=== PATIENT | male | born 1960 | race Caucasian/White ===

== ENCOUNTER 2020-06-18 10:36 | Emergency (ER) | payer BC, OTHER ==
[~2020-06-18] VITALS: Ht 180.3 cm; Wt 85.7 kg
[2020-06-18] MEDS ORDERED: morphine INJ 10 MG/ML 1ML (SYR OR VIAL) IVP STA (10:50)
[2020-06-18] MEDS ORDERED: KETOROLAC 30 MG/ML VIAL IVP ONE (11:00)
[2020-06-18] MEDS ORDERED: ONDANSETRON 4 MG/2 ML (SDV) Z0FRAN IVP ONE (11:00)
[2020-06-18] MEDS ORDERED: ENALAPRILAT 1.25 MG/1 ML (VASOTEC) 1 ML VIAL IV ONE (11:00)
[2020-06-18] MEDS ORDERED: lisINopril 10 MG (PRINIVIL) TABLET PO ONE (11:00)
--- NOTE | 2020-06-18 11:29 | Diagnostic Imaging Report ---
EXAMINATION: CT head without contrast. TECHNIQUE: Multiple contiguous axial images were obtained through the brain without the use of intravenous contrast. All CT scans use one or more of the following dose optimizing techniques: automated exposure control, MA and/or KvP adjustment based on a patient size and exam type, or iterative reconstruction. HISTORY: headache x 7days COMPARISON: None available. FINDINGS: The ventricles and sulci are normal. No abnormal attenuation of brain parenchyma is present. No acute intracranial hemorrhage or abnormal extra-axial fluid collections are present. Calcification of the intracranial ICAs. No hyperdense vessel. The calvarium is intact. Mucosal thickening of the ethmoid sinuses. The visualized paranasal sinuses are clear. The orbits are normal. IMPRESSION: 1. No acute intracranial abnormality. Dictated by: Dictated on workstation # [id number]
[2020-06-18 11:32] LABS: BASOPHILS % (AUTO) 1 % (0-10); EOSINOPHILS % (AUTO) 3 % (0-10); HEMATOCRIT 44 % (40-54); LYMPHOCYTES % (AUTO) 25 % (12-44); MEAN CORPUSCULAR HEMOGLOBIN 29 PG (25-34); MEAN CORPUSCULAR HGB CONC 34 G/DL (32-36); MEAN CORPUSCULAR VOLUME 85 FL (80-99); MEAN PLATELET VOLUME 9.3 FL (7.4-10.4); MONOCYTES % (AUTO) 6 % (0-12); NEUTROPHILS % (AUTO) 65 % (42-75); PLATELET COUNT 263 10^3/uL (130-400); WHITE BLOOD COUNT 6.1 10^3/uL (4.3-11.0)
[2020-06-18 11:33] LABS: BASOPHILS # (AUTO) 0.1 10^3/uL (0.0-0.1); EOSINOPHILS # (AUTO) 0.2 10^3/uL (0.0-0.3); LYMPHOCYTES # (AUTO) 1.5 X 10^3 (1.0-4.0); MONOCYTES # (AUTO) 0.4 X 10^3 (0.0-1.0)
[2020-06-18 11:40] LABS: ALANINE AMINOTRANSFERASE 25 U/L (0-55); ALKALINE PHOSPHATASE 83 U/L (40-136); BILIRUBIN,TOTAL 0.3 MG/DL (0.1-1.0); BUN/CREATININE RATIO 22; CALCIUM 9.9 MG/DL (8.5-10.1); CARBON DIOXIDE 24 MMOL/L (21-32); CHLORIDE 102 MMOL/L (98-107); CREATININE SERUM 0.72 MG/DL (0.60-1.30); GFR ESTIMATED > 60; GLUCOSE 175 MG/DL (70-105); SODIUM 139 MMOL/L (135-145); TOTAL PROTEIN 7.6 GM/DL (6.4-8.2)
[2020-06-18 11:41] LABS: ALBUMIN 4.5 GM/DL (3.2-4.5)
[2020-06-18] MEDS ORDERED: LISI40TA PO (12:01)
--- NOTE | 2020-06-18 12:01 | ED General ---
General Chief Complaint: Cardiac/General Problems Stated Complaint: HEADACHE, HIGH BP Nursing Triage Note: Patient presents to the ED with c/o of high blood pressure and headaches. He states that he was seen at [facility] this morning and sent to the ED for further evaluation because his blood pressure was elevated. He also reports that he has been experiencing headaches every morning for the past 7 days. Nursing Sepsis Screen: No Definite Risk History of Present Illness Date Seen by Provider: Jun 18, 2020 Time Seen by Provider: 12:14 Initial Comments Patient presenting to emergency department for evaluation of a headache that has been going on for approximately one week and he describes it as a diffuse pounding sensation throughout his entire head that he wakes up with it in the morning and then he takes ibuprofen and the pain goes away. He says he doesn't have it all day again until before he goes to sleep and feels a headache again. He denies any other symptoms of fevers chills nausea vomiting vision changes neck stiffness unilateral weakness numbness or tingling. He went to the urgent care and they told him to come here because his blood pressure was in the 200/120 range. He denies ever being diagnosed with hypertension denies having a physician or having any diagnosed medical problems. He denies any chest pain shortness of breath decreased urination or other symptoms associated with his hypertension. Allergies and Home Medications Allergies Coded Allergies: No Known Drug Allergies (Unverified , 06/18/20) Home Medications Lisinopril 40 Mg Tablet, 40 MG PO DAILY Prescribed by: JOSEFA CHAHAL on 06/18/20 1201 Patient Home Medication List Home Medication List Reviewed: Yes Review of Systems Review of Systems Constitutional: no symptoms reported EENTM: no symptoms reported Respiratory: no symptoms reported Cardiovascular: no symptoms reported Gastrointestinal: no symptoms reported Genitourinary: no symptoms reported Musculoskeletal: no symptoms reported Skin: no symptoms reported Psychiatric/Neurological: Headache All Other Systems Reviewed Negative Unless Noted: Yes Past Eoohazo-Fqkxpy-Wylhsc Hx Patient Social History Alcohol Use: Rarely Uses Recreational Drug Use: No Smoking Status: Current Everyday Smoker Type Used: Cigarettes 2nd Hand Smoke Exposure: No Recent Foreign Travel: No Contact w/Someone Who Travel: No Recent Infectious Disease Expo: No Recent Hopitalizations: No Physical Abuse: No Sexual Abuse: No Mistreated: No Fear: No Seasonal Allergies Seasonal Allergies: No Past Medical History Surgeries: Yes (Hernia repair) Abdominal, Appendectomy Respiratory: No Cardiac: No Neurological: No Genitourinary: No Gastrointestinal: No Musculoskeletal: No Endocrine: No HEENT: No Cancer: No Psychosocial: No Integumentary: No Blood Disorders: No Physical Exam Vital Signs Vital Signs - First Documented 06/18/20 10:43 Temp 36.4 Pulse 74 Resp 16 B/P (MAP) 193/112 (139) Pulse Ox 98 O2 Delivery Room Air Capillary Refill : Less Than 3 Seconds Height, Weight, BMI Height: '" Weight: lbs. oz. kg; 26.00 BMI Method: General Appearance: No Apparent Distress, WD/WN HEENT: PERRL/EOMI Neck: Supple Respiratory: No Respiratory Distress Cardiovascular: Regular Rate, Rhythm Gastrointestinal: Non Tender, Soft Back: No Vertebral Tenderness Extremity: Normal Capillary Refill Neurologic/Psychiatric: Alert, Oriented x3, No Motor/Sensory Deficits Progress/Results/Core Measures Suspected Sepsis Recent Fever Within 48 Hours: No Infection Criteria Present: None New/Unexplained Altered Menta: No Sepsis Screen: No Definite Risk SIRS Temperature: Pulse: 74 Respiratory Rate: 16 Laboratory Tests 06/18/20 11:20: White Blood Count 6.1 Blood Pressure 193 /112 Mean: 139 Laboratory Tests 06/18/20 11:20: Creatinine 0.72, Platelet Count 263, Total Bilirubin 0.3 Results/Orders Lab Results Laboratory Tests Test 06/18/20 11:20 Range/Units White Blood Count 6.1 4.3-11.0 10^3/uL Red Blood Count 5.12 4.35-5.85 10^6/uL Hemoglobin 15.0 13.3-17.7 G/DL Hematocrit 44 40-54 % Mean Corpuscular Volume 85 80-99 FL Mean Corpuscular Hemoglobin 29 25-34 PG Mean Corpuscular Hemoglobin Concent 34 32-36 G/DL Red Cell Distribution Width 13.3 10.0-14.5 % Platelet Count 263 130-400 10^3/uL Mean Platelet Volume 9.3 7.4-10.4 FL Immature Granulocyte % (Auto) 0 % Neutrophils (%) (Auto) 65 42-75 % Lymphocytes (%) (Auto) 25 12-44 % Monocytes (%) (Auto) 6 0-12 % Eosinophils (%) (Auto) 3 0-10 % Basophils (%) (Auto) 1 0-10 % Neutrophils # (Auto) 4.0 1.8-7.8 X 10^3 Lymphocytes # (Auto) 1.5 1.0-4.0 X 10^3 Monocytes # (Auto) 0.4 0.0-1.0 X 10^3 Eosinophils # (Auto) 0.2 0.0-0.3 10^3/uL Basophils # (Auto) 0.1 0.0-0.1 10^3/uL Immature Granulocyte # (Auto) 0.0 0.0-0.1 10^3/uL Sodium Level 139 135-145 MMOL/L Potassium Level 4.0 3.6-5.0 MMOL/L Chloride Level 102 98-107 MMOL/L Carbon Dioxide Level 24 21-32 MMOL/L Anion Gap 13 5-14 MMOL/L Blood Urea Nitrogen 16 7-18 MG/DL Creatinine 0.72 0.60-1.30 MG/DL Estimat Glomerular Filtration Rate > 60 BUN/Creatinine Ratio 22 Glucose Level 175 H 70-105 MG/DL Calcium Level 9.9 8.5-10.1 MG/DL Corrected Calcium 9.5 8.5-10.1 MG/DL Total Bilirubin 0.3 0.1-1.0 MG/DL Aspartate Amino Transf (AST/SGOT) 21 5-34 U/L Alanine Aminotransferase (ALT/SGPT) 25 0-55 U/L Alkaline Phosphatase 83 40-136 U/L Total Protein 7.6 6.4-8.2 GM/DL Albumin 4.5 3.2-4.5 GM/DL My Orders Orders - JOSEFA CHAHAL DO Ct Head Wo (06/18/20 10:50) Iv/Invasive Line Insertion .IV start (06/18/20 10:50) Cbc With Automated Diff (06/18/20 10:50) Comprehensive Metabolic Panel (06/18/20 10:50) Ketorolac Injection (Toradol Injection) (06/18/20 11:00) Morphine Injection (Morphine Injection (06/18/20 10:50) Ondansetron Injection (Zofran Injectio (06/18/20 11:00) Enalaprilat Inj (Vasotec Inj) (06/18/20 11:00) Lisinopril Tablet (Zestril Tablet) (06/18/20 11:00) Medications Given in ED Current Medications Medications Dose Ordered Sig/Regulo Route Start Time Stop Time Status Last Admin Dose Admin Enalaprilat 2.5 mg ONCE ONCE IV 06/18/20 11:00 06/18/20 11:01 DC 06/18/20 11:22 2.5 MG Ketorolac Tromethamine 15 mg ONCE ONCE IVP 06/18/20 11:00 06/18/20 11:01 DC 06/18/20 11:22 15 MG Lisinopril 40 mg ONCE ONCE PO 06/18/20 11:00 06/18/20 11:01 DC 06/18/20 11:21 40 MG Vital Signs/I&O 06/18/20 06/18/20 10:43 12:06 Temp 36.4 36.4 Pulse 74 66 Resp 16 16 B/P (MAP) 193/112 (139) 161/95 (139) Pulse Ox 98 96 O2 Delivery Room Air Capillary Refill : Less Than 3 Seconds Blood Pressure Mean: 139 Progress Note : Progress Note Patient with a headache that I'm not entirely certain is related to his hypertension. Patient given Toradol enalapril and lisinopril and his blood pressure improved to the 155/90 range and I did not want to drop his blood pressure any further. Patient told to stop smoking and take a baby aspirin daily and follow with a primary care provider is a total of his blood pressure may be undertreated or overtreated and he will need short-term follow-up. He says that he has pain into for Dr. howard before in the past and he will try and arrange follow-up with him later this week. Given patient appears well with normal vital signs benign physical exam and workup he'll be discharged in stable condition. Patient aware and agreeable with plan for discharge and verbalized understanding of the need for short-term follow-up and strict ED return precautions discussed. Departure Impression Primary Impression: Asymptomatic hypertension Additional Impression: Headache Disposition: HOME, SELF-CARE Condition: Stable Departure-Patient Inst. Referrals: OMAR,MINDY LYONS Patient Instructions: High Blood Pressure (DC) Add. Discharge Instructions: Stop smoking. Take an 81mg aspirin daily. Drink plenty of fluids. Follow with Dr. Howard this week and come back with any concerns. Thank you! All discharge instructions reviewed with patient and/or family. Voiced understanding. Scripts Lisinopril (Lisinopril) 40 Mg Tablet 40 MG PO DAILY for 30 Days, TAB Prov: JOSEFA CHAHAL DO 06/18/20 JOSEFA CHAHAL DO Jun 18, 2020 12:01
[2020-06-18 12:06] VITALS: BP 161/95
== END 2020-06-18 12:07 | disposition home or self-care (01) ==
LOC: ER FS 10:38
DX: I10 Essential (primary) hypertension (principal); R51.9 Headache, unspecified; F17.210 Nicotine dependence, cigarettes, uncomplicated
CPT/HCPCS: 36415; 70450; 80053; 85025

== ENCOUNTER 2021-11-08 05:34 | Outpatient (CLI) | payer BC ==
[~2021-11-08] VITALS: Ht 180 cm; Wt 86.0 kg
[~2021-11-08 05:34] MED LIST: LISI40TA9 PO
== END 2021-11-08 10:40 | disposition home or self-care (01) ==
LOC: PREOP 05:34
PROVIDERS: ATTEND Surgery
DX: Z01.818 Encounter for other preprocedural examination (principal)

== ENCOUNTER 2021-11-15 09:35 | Day surgery (SDC) | payer BC ==
[~2021-11-15] VITALS: Ht 180 cm; Wt 86.0 kg
[2021-11-15] MEDS ORDERED: LACTATED RINGERS 1,000 ML IV STA (09:38)
[2021-11-15] MEDS ORDERED: LACTATED RINGERS 1,000 ML IV ONE (09:39)
[2021-11-15] MEDS ORDERED: LIDOCAINE JELLY 2% 6 ML SYRINGE MM PRN (09:45)
[2021-11-15 09:50] VITALS: BP 118/89
[2021-11-15] MEDS ORDERED: LIDOCAINE/EPI 1%-1:100,000 (XYLOCAINE) 20ML INJ ONE (10:20)
--- NOTE | 2021-11-15 10:38 | Discharge Inst-Surgical ---
D/C Lap Instructions-CRISELDA Follow Up Activity as tolerated High Fiber Diet 25g or more per day Avoid Alcohol, Caffeine, Spicy [place] and Acid foods. Drink 64 fluid oz or more of fluids per day. Symptoms to Report: Fever over 101 degree F, Nausea/Vomiting If any problems/questions: Contact your physician or go to Emergency Room SVETLANA ABURTO MD Nov 15, 2021 10:38
--- NOTE | 2021-11-15 10:38 | Progress Note-Pre Operative ---
Pre-Operative Progress Note H&P Reviewed The H&P was reviewed, patient examined and no changes noted. Date Seen by Provider: Nov 15, 2021 Time Seen by Provider: 10:00 Date H&P Reviewed: Nov 15, 2021 Time H&P Reviewed: 10:00 Pre-Operative Diagnosis: screening colo, sx anal cyst SVETLANA ABURTO MD Nov 15, 2021 10:37
[2021-11-15] MEDS ORDERED: ONDANSETRON 4 MG (ZOFRAN) ORAL DISSOLVE TAB PO PRN (10:45)
[2021-11-15] MEDS ORDERED: LIDOCAINE/EPI 1%-1:100,000 (XYLOCAINE) 10 ML INJ ONE (10:45)
[2021-11-15] MEDS ORDERED: ONDANSETRON 4 MG/2 ML (SDV) Z0FRAN IVP PRN (10:45)
[2021-11-15] MEDS ORDERED: MIDAZOLAM 2 MG/2 ML (VERSED) VIAL ONE (11:17)
[2021-11-15] MEDS ORDERED: PROPOFOL INJECTION 50 ML IV ONE (11:17)
[2021-11-15 12:17] VITALS: BP 146/80
[2021-11-15 12:20] VITALS: BP 147/80
--- NOTE | 2021-11-15 12:23 | Anesthesia-General Post-Op ---
MAC Patient Condition Mental Status/LOC: Same as Preop Cardiovascular: Satisfactory Nausea/Vomiting: Absent Respiratory: Satisfactory Pain: Controlled Complications: Absent Post Op Complications Complications None Follow Up Care/Instructions Patient Instructions None needed. Anesthesiology Discharge Order Discharge Order Patient is doing well, no complaints, stable vital signs, no apparent adverse anesthesia problems. JENNY DOMÍNGUEZ DO Nov 15, 2021 12:23
--- NOTE | 2021-11-15 12:25 | Progress Note-Post Operative ---
Post-Operative Progess Note Surgeon (s)/Electromyographic Technician (s) Surgeon SVETLANA ABURTO MD Electromyographic Technician: none Pre-Operative Diagnosis screening colo, sx anal cyst Post-Operative Diagnosis anal inclusion cyst(1cm), large peduculated rectal polyp(1.5cm), small splenic flexure polyp. Procedure & Operative Findings Date of Procedure 11/15/21 Procedure Performed/Findings excision anal cyst(1cm), snare polypectomy rectal polyp, splenic flex polypectomy with hot bx forcep Anesthesia Type mac Estimated Blood Loss Estimated blood loss (mL): minimal Specimens/Packing Specimens Removed anal lesion, rectal polyp, splenic flex polyp SVETLANA ABURTO MD Nov 15, 2021 12:25
[2021-11-15 12:50] VITALS: BP 138/87
[2021-11-15 13:00] VITALS: BP 138/87
--- NOTE | 2021-11-15 18:33 | OPERATIVE REPORT ---
DATE OF SERVICE: 11/15/2021 PREOPERATIVE DIAGNOSIS: Screening colonoscopy, rectal bleeding. POSTOPERATIVE DIAGNOSES: Perianal cyst, 1 cm in size; pedunculated polyp of the rectum 1.5 cm in size; small polyp of the splenic flexure approximately 4 mm in size. Chronic stage II external and internal hemorrhoids. PROCEDURE: Excision external perianal cyst, 1 cm in size, excision of rectal polyp, snare polypectomy, removal of splenic flexure polyp with a hot biopsy forceps. SURGEON: Svetlana Aburto MD. ANESTHESIA: Monitored anesthesia care with local. ESTIMATED BLOOD LOSS: Minimal. FINDINGS: Perianal cyst, 1 cm in size; pedunculated polyp of the rectum 1.5 cm in size; small polyp of the splenic flexure approximately 4 mm in size. Chronic stage II external and internal hemorrhoids. DISPOSITION: The patient tolerated the procedure well. INDICATIONS: The patient is a 61-year-old male in need of a screening colonoscopy. He has not had a colonoscopy up to this point in his life. He reports that he has had some episodes of constipation in the past. He also does report a burning and irritation in the perianal region, which would sometimes bleed. He also does have hemorrhoids. He does not report any first-degree family history of colon cancer. DESCRIPTION OF PROCEDURE: The patient was brought to the endoscopy suite, laid in the left lateral decubitus position. Chronic stage II external and internal hemorrhoids were identified. There was also a perianal cyst approximately 1 cm in size, which was anterior. Digital rectal examination was performed and a palpable mass was identified, likely consistent with a polyp. Prostate gland was palpable and appeared normal. The endoscope was then intubated and anus and rectum gently insufflated. The endoscope was advanced through the anal canal where a significant sized pedunculated polyp identified. This was completely excised at its base using a snare polypectomy and sent to pathology with visualization of good hemostasis. The endoscope was then advanced through the sigmoid colon where no diverticulosis identified. The endoscope was then advanced through the splenic flexure where a small polyp approximately 4 mm in size was identified. This was biopsied and destroyed with forceps and electrocautery with visualization of good hemostasis. The endoscope was then advanced through the remainder of the descending, transverse and ascending colon to the cecum, which were normal. Endoscope was then slowly withdrawn while taking a second look and suctioning of residual air with no additional findings. The anal cyst was then excised. The cyst was anesthetized using 1% lidocaine with epinephrine. The cyst was then excised using a 15 blade, identified the capsule and removing it intact. Good hemostasis was observed and the anoderm was then reapproximated using 3-0 nylon sutures. Good hemostasis was observed. Wound was then cleaned and covered with gauze. The patient tolerated the procedure well. We will await the biopsy results; however, he will need to proceed with a high fiber diet with at least 30 grams of fiber daily as well as significant amounts of water to promote soft stools on a daily basis. He will likely also need to follow up colonoscopy based on the characteristics of the lesion being greater than 1 cm as well as having what appears to be a villous component to the lesion. Job ID: [id number] DocumentID: [id number] Dictated Date: 11/15/2021 12:19:47 [employer] Teacher Date: 11/15/2021 18:32:47 Dictated By: SVETLANA ABURTO MD
== END 2021-11-15 13:00 | disposition home or self-care (01) ==
LOC: ENDO 09:35
PROVIDERS: ATTEND Surgery
DX: D12.3 Benign neoplasm of transverse colon (principal); D12.8 Benign neoplasm of rectum; D12.9 Benign neoplasm of anus and anal canal; K64.1 Second degree hemorrhoids; Z79.82 Long term (current) use of aspirin; Z90.89 Acquired absence of other organs; Z98.890 Other specified postprocedural states

== ENCOUNTER 2023-01-22 19:47 | Inpatient (IN) | payer BC ==
[~2023-01-22] VITALS: Ht 180.3 cm; Wt 86.4 kg
[2023-01-22 20:03] LABS: BASOPHILS # (AUTO) 0.1 10^3/uL (0.0-0.1); BASOPHILS % (AUTO) 1 % (0-10); EOSINOPHILS # (AUTO) 0.2 10^3/uL (0.0-0.3); EOSINOPHILS % (AUTO) 2 % (0-10); HEMATOCRIT 41 % (40-54); HEMOGLOBIN 13.9 g/dL (13.3-17.7); LYMPHOCYTES # (AUTO) 1.9 10^3/uL (1.0-4.0); LYMPHOCYTES % (AUTO) 22 % (12-44); MEAN CORPUSCULAR HEMOGLOBIN 29 pg (25-34); MEAN CORPUSCULAR HGB CONC 34 g/dL (32-36); MEAN CORPUSCULAR VOLUME 85 fL (80-99); MEAN PLATELET VOLUME 9.7 fL (9.0-12.2); MONOCYTES # (AUTO) 1.1 10^3/uL (0.0-1.0); MONOCYTES % (AUTO) 13 % (0-12); NEUTROPHILS # (AUTO) 5.3 10^3/uL (1.8-7.8); NEUTROPHILS % (AUTO) 62 % (42-75); PLATELET COUNT 228 10^3/uL (130-400); WHITE BLOOD COUNT 8.5 10^3/uL (4.3-11.0)
--- NOTE | 2023-01-22 20:08 | Diagnostic Imaging Report ---
EXAMINATION: Chest 1 view HISTORY: Chest pain. COMPARISON: None available. FINDINGS: The lung volumes are normal. No focal consolidation is seen. No large pleural effusion or pneumothorax is seen. The cardiomediastinal silhouette is normal in size and contour. No acute osseous abnormality is seen. IMPRESSION: 1. No acute pleuroparenchymal process. Dictated by: Dictated on workstation # [id number]
[2023-01-22 20:23] LABS: ALBUMIN 4.3 GM/DL (3.2-4.5); BILIRUBIN,TOTAL 0.3 MG/DL (0.1-1.0); CALCIUM 9.7 MG/DL (8.5-10.1); CREATININE SERUM 0.86 MG/DL (0.60-1.30); MAGNESIUM 2.2 MG/DL (1.6-2.4); TOTAL PROTEIN 7.4 GM/DL (6.4-8.2)
[2023-01-22 20:25] LABS: PROTHROMBIN TIME PATIENT 12.6 SEC (12.2-14.7)
--- NOTE | 2023-01-22 20:25 | ED Chest Pain ---
General Chief Complaint: Chest Pain Stated Complaint: CP,PAIN IN BOTH ARMS Nursing Triage Note: PATIENT REPORTS CHEST PAIN OVER THE LAST FEW MONTHS. DENIES BEING TREATED FOR THIS. STATES DID QUIT SMOKING 6 DAYS AGO.PATIENT STATES PAIN WORSENS WITH ACTIVITY, SUCH CLIMBING STAIRS OR MOWING LAWN. History of Present Illness Date Seen by Provider: January 22, 2023 Time Seen by Provider: 19:52 Initial Comments 62-year-old male with PMH of HTN on Lisinopril, and quit smoking 5 days ago, is here with complaints of chest pain that has been ongoing for over 1 month. Patient does not have any cardiac history. Patient's parents do not have any cardiac history however his mother from a stroke. Patient states that the chest pain is mostly upper part of the chest without any radiation, and is aggravated by walking up stairs or walking long distances and is associated with shortness of breath at that time. Patient's last PCP visit was 6 months ago. Denies fever and chills, respiratory infections, cough, palpitations, leg swelling, abdominal pain, diaphoresis, diarrhea, nausea and vomiting. Patient took 4 aspirin at home prior to coming to the ER. Allergies and Home Medications Allergies Coded Allergies: No Known Drug Allergies (Unverified , 06/18/20) Patient Home Medication List Home Medication List Reviewed: Yes Lisinopril (Lisinopril) 40 Mg Tablet, 40 MG PO DAILY Prescribed by: JOSEFA CHAHAL on 06/18/20 1201 Review of Systems Review of Systems Constitutional: no symptoms reported, see HPI EENTM: No Symptoms Reported Respiratory: See HPI, SOA With Exertion Cardiovascular: Chest Pain Gastrointestinal: No Symptoms Reported Genitourinary: No Symptoms Reported Musculoskeletal: no symptoms reported Skin: no symptoms reported Psychiatric/Neurological: No Symptoms Reported Endocrine: No Symptoms Reported Hematologic/Lymphatic: No Symptoms Reported Past Kbzyhdz-Pcjuyz-Hxukpb Hx Patient Social History Tobacco Use?: Yes Tobacco type used: Cigarettes Smoking Status: Former Smoker Immunizations Up To Date Influenza Vaccine Up-to-Date: No; Not Current First/Initial COVID19 Vaccinat: 2020 Second COVID19 Vaccination Ronnie: none Third COVID19 Vaccination Date: NO Seasonal Allergies Seasonal Allergies: No Past Medical History Surgery/Hospitalization HX: HTN Surgeries: Yes (Hernia repair) Abdominal, Appendectomy, Tonsillectomy Respiratory: No Cardiac: Yes Hypertension Neurological: No Genitourinary: No Gastrointestinal: No Musculoskeletal: No Endocrine: No HEENT: No Cancer: No Psychosocial: No Integumentary: No Blood Disorders: No Adverse Reaction/Blood Tranf: No Physical Exam Vital Signs Vital Signs - First Documented 01/22/23 19:51 Temp 37.0 Pulse 85 Resp 20 B/P (MAP) 142/92 (109) Pulse Ox 98 O2 Delivery Room Air Capillary Refill : Less Than 3 Seconds Height, Weight, BMI Height: '" Weight: lbs. oz. kg; 26.00 BMI Method: General Appearance: No Apparent Distress, WD/WN, Anxious HEENT: PERRL/EOMI Neck: Full Range of Motion Respiratory: Chest Non Tender, Lungs Clear, Normal Breath Sounds, No Accessory Muscle Use, No Respiratory Distress Cardiovascular: Regular Rate, Rhythm, No Edema Gastrointestinal: Normal Bowel Sounds, Non Tender, Soft Extremity: Normal Range of Motion Neurologic/Psychiatric: Alert, Oriented x3, No Motor/Sensory Deficits, Normal Mood/Affect Skin: Normal Color Progress/Results/Core Measures Results/Orders Lab Results Laboratory Tests Test 01/22/23 19:54 01/22/23 20:50 01/22/23 21:32 Range/Units White Blood Count 8.5 4.3-11.0 10^3/uL Red Blood Count 4.84 4.30-5.52 10^6/uL Hemoglobin 13.9 13.3-17.7 g/dL Hematocrit 41 40-54 % Mean Corpuscular Volume 85 80-99 fL Mean Corpuscular Hemoglobin 29 25-34 pg Mean Corpuscular Hemoglobin Concent 34 32-36 g/dL Red Cell Distribution Width 13.6 10.0-14.5 % Platelet Count 228 130-400 10^3/uL Mean Platelet Volume 9.7 9.0-12.2 fL Immature Granulocyte % (Auto) 0 % Neutrophils (%) (Auto) 62 42-75 % Lymphocytes (%) (Auto) 22 12-44 % Monocytes (%) (Auto) 13 H 0-12 % Eosinophils (%) (Auto) 2 0-10 % Basophils (%) (Auto) 1 0-10 % Neutrophils # (Auto) 5.3 1.8-7.8 10^3/uL Lymphocytes # (Auto) 1.9 1.0-4.0 10^3/uL Monocytes # (Auto) 1.1 H 0.0-1.0 10^3/uL Eosinophils # (Auto) 0.2 0.0-0.3 10^3/uL Basophils # (Auto) 0.1 0.0-0.1 10^3/uL Immature Granulocyte # (Auto) 0.0 0.0-0.1 10^3/uL Prothrombin Time 12.6 12.2-14.7 SEC INR Comment 0.9 0.8-1.4 Activated Partial Thromboplast Time 35 24-35 SEC D-Dimer 0.34 0.00-0.49 UG/ML Sodium Level 141 135-145 MMOL/L Potassium Level 4.0 3.6-5.0 MMOL/L Chloride Level 105 98-107 MMOL/L Carbon Dioxide Level 24 21-32 MMOL/L Anion Gap 12 5-14 MMOL/L Blood Urea Nitrogen 21 H 7-18 MG/DL Creatinine 0.86 0.60-1.30 MG/DL Estimat Glomerular Filtration Rate 97 BUN/Creatinine Ratio 24 Glucose Level 121 H 70-105 MG/DL Calcium Level 9.7 8.5-10.1 MG/DL Corrected Calcium 9.5 8.5-10.1 MG/DL Magnesium Level 2.2 1.6-2.4 MG/DL Total Bilirubin 0.3 0.1-1.0 MG/DL Aspartate Amino Transf (AST/SGOT) 42 H 5-34 U/L Alanine Aminotransferase (ALT/SGPT) 21 0-55 U/L Alkaline Phosphatase 85 40-136 U/L Troponin I 3.00 *H 3.19 *H <0.30 NG/ML Pro-B-Type Natriuretic Peptide 975.1 H <125.0 PG/ML Total Protein 7.4 6.4-8.2 GM/DL Albumin 4.3 3.2-4.5 GM/DL Urine Color YELLOW Urine Clarity CLEAR Urine pH 6.5 5-9 Urine Specific [place] 1.020 1.016-1.022 Urine Protein NEGATIVE NEGATIVE Urine Glucose (UA) NEGATIVE NEGATIVE Urine Ketones NEGATIVE NEGATIVE Urine Nitrite NEGATIVE NEGATIVE Urine Bilirubin NEGATIVE NEGATIVE Urine Urobilinogen 0.2 < = 1.0 MG/DL Urine Leukocyte Esterase NEGATIVE NEGATIVE Urine RBC (Auto) TRACE-I H NEGATIVE Urine RBC 2-5 H /HPF Urine WBC RARE /HPF Urine Squamous Epithelial Cells NONE /HPF Urine Crystals PRESENT H /LPF Urine Amorphous Sediment FEW DIANA URATES H /LPF Urine Bacteria NEGATIVE /HPF Urine Casts NONE /LPF Urine Mucus SMALL H /LPF Urine Culture Indicated NO Urine Opiates Screen NEGATIVE NEGATIVE Urine Oxycodone Screen NEGATIVE NEGATIVE Urine Methadone Screen NEGATIVE NEGATIVE Urine Propoxyphene Screen NEGATIVE NEGATIVE Urine Barbiturates Screen NEGATIVE NEGATIVE Ur Tricyclic Antidepressants Screen NEGATIVE NEGATIVE Urine Phencyclidine Screen NEGATIVE NEGATIVE Urine Amphetamines Screen NEGATIVE NEGATIVE Urine Methamphetamines Screen NEGATIVE NEGATIVE Urine Benzodiazepines Screen NEGATIVE NEGATIVE Urine Cocaine Screen NEGATIVE NEGATIVE Urine Cannabinoids Screen POSITIVE H NEGATIVE My Orders Orders - NORMA BURTON MD Continuous Ekg Monitoring (01/22/23 19:52) Ekg Tracing (01/22/23 19:52) Chest 1 View Ap/Pa Only (01/22/23 19:53) Cbc With Automated Diff (01/22/23 19:56) Comprehensive Metabolic Panel (01/22/23 19:56) Drug Screen Stat (Urine) (01/22/23 19:56) Magnesium (01/22/23 19:56) Protime With Inr (01/22/23 19:56) Partial Thromboplastin Time (01/22/23 19:56) Ua Culture If Indicated (01/22/23 19:56) Troponin I Fs (01/22/23 19:56) Fibrin Degradation Products (01/22/23 20:07) Probnp Fs (01/22/23 20:07) Nitroglycerin 0.4 Mg Btl 25's (Nitrostat (01/22/23 20:30) Troponin I Fs (01/22/23 20:51) Nitroglycerin 0.4 Mg Btl 25's (Nitrostat (01/22/23 20:37) Enoxaparin Injection (Lovenox Injection) (01/22/23 21:21) Ed Admission (Communication) (01/22/23 21:26) Medications Given in ED Current Medications Medications Dose Ordered Sig/Regulo Route Start Time Stop Time Status Last Admin Dose Admin Nitroglycerin 0.4 mg UD PRN SL 01/22/23 20:30 01/22/23 20:45 0.4 MG Vital Signs/I&O 01/22/23 19:51 Temp 37.0 Pulse 85 Resp 20 B/P (MAP) 142/92 (109) Pulse Ox 98 O2 Delivery Room Air 2 Blood Pressure Mean: 109 Progress Progress Note : Progress Note 1. NSTEMI - CXR: no acute changes - EKG: non-ischemic - Troponin: 1st: elevated 3.00, 2nd troponin is 3.19 - D-dimer: normal - CBC/CMP: unremarkable - Pt took 4 tabs of ASA at home - Sublingual nitro given in ER - Lovenox 86mg STAT - Discussed with cancer genetics assistant and will start pt on Lovenox, and also with hospitalist and will admit pt to ICU 2. MARIJUANA ABUSE: - UA/ UDS: no infection , but marijuana positive Initial ECG Impression Date: January 22, 2023 Initial ECG Impression Time: 19:54 Initial ECG Rate: 83 Initial ECG Rhythm: Normal Sinus Initial ECG Intervals: Normal Initial ECG Impression: 1st Degree AV Block Initial ECG Comparisson: No Previous ECG Available Diagnostic Imaging Diagonstic Imaging: Xray Plain Films/CT/US/NM/MRI: chest Comments [facility], [place] NAME: KEYSHAJOSEFA Jeffery [facility] REC#: [id number] PT STATUS: REG ER : 1960 PHYSICIAN: NORMA BURTON MD ADMIT DATE: 01/22/23/ER FS Signed Date of Exam:01/22/23 CHEST 1 VIEW AP/PA ONLY EXAMINATION: Chest 1 view HISTORY: Chest pain. COMPARISON: None available. FINDINGS: The lung volumes are normal. No focal consolidation is seen. No large pleural effusion or pneumothorax is seen. The cardiomediastinal silhouette is normal in size and contour. No acute osseous abnormality is seen. IMPRESSION: 1. No acute pleuroparenchymal process. Dictated by: Dictated on workstation # [id number] Dict: 01/22/232005 Trans: 01/22/232014 BERENICE [id number] Interpreted by: DEBBIE PALMA DO Electronically signed by: DEBBIE PALMA DO 01/22/232014 Departure Communication (Admissions) Time/Spoke to Admitting Phy: 21:[address] Avelar, hospitalist and will admit to ICU Time/Spoke to Consulting Phy: 21:18 Discussed with cancer genetics assistant Dr. Little, and will admit to hospitalist. Will start Lovenox. Impression Primary Impression: NSTEMI (non-ST elevated myocardial infarction) Additional Impression: Marijuana abuse Disposition: 30 STILL A PATIENT Condition: Stable Admissions Decision to Admit Reason: Admit from ER (General) Decision to Admit/Date: January 22, 2023 Time/Decision to Admit Time: 21:05 Departure-Patient Inst. Referrals: NO,LOCAL PHYSICIAN (PCP/Family) Primary Care Physician NORMA BURTON MD January 22, 2023 20:25
[2023-01-22 20:26] LABS: INR 0.9 (0.8-1.4)
[2023-01-22] MEDS ORDERED: NITROGLYCERIN 0.4 MG SL TABS BTL 25'S SL ONE (20:37)
[2023-01-22] MEDS: NITROGLYCERIN 0.4 MG SL TABS BTL 25'S SL PRN ×2 (20:40→20:45)
[2023-01-22] MEDS ORDERED: ENOXAPARIN 100 MG/1 ML (LOVENOX) SYR SC STA (21:21)
[2023-01-22 21:34] LABS: BILIRUBIN,URINE NEGATIVE (NEGATIVE); CLARITY,URINE CLEAR; COLOR,URINE YELLOW; GLUCOSE, URINE (UA) NEGATIVE (NEGATIVE); KETONES,URINE NEGATIVE (NEGATIVE); LEUKOCYTE ESTERASE ,URINE NEGATIVE (NEGATIVE); NITRITE,URINE NEGATIVE (NEGATIVE); PH,URINE 6.5 (5-9); PROTEIN,URINE NEGATIVE (NEGATIVE)
[2023-01-22 21:39] LABS: BACTERIA,URINE NEGATIVE /HPF; WBC,URINE RARE /HPF
[2023-01-22 21:40] LABS: AMORPHOUS SEDIMENT,UR FEW AMOR URATES /LPF
[2023-01-22 21:44] LABS: AMPHETAMINE SCREEN, URINE NEGATIVE (NEGATIVE); BARBITURATE SCREEN URINE NEGATIVE (NEGATIVE); BENZODIAZEPINES SCREEN URINE NEGATIVE (NEGATIVE); CANNABINOID SCREEN, URINE POSITIVE (NEGATIVE); COCAINE SCREEN URINE NEGATIVE (NEGATIVE); METHADONE STAT NEGATIVE (NEGATIVE); OPIATE SCREEN URINE NEGATIVE (NEGATIVE); OXYCODONE STAT NEGATIVE (NEGATIVE); PROPOXYPHENE STAT NEGATIVE (NEGATIVE); TRICYCLIC ANTIDEPRESSANTS SCRE NEGATIVE (NEGATIVE)
[2023-01-23] MEDS ORDERED: MELATONIN 3 MG TABLET PO PRN (01:00)
[2023-01-23] MEDS ORDERED: ACETAMINOPHEN 325 MG TABLET PO PRN (01:00)
[2023-01-23] MEDS ORDERED: CATHETER FLUSH 10 ML SYR IVP PRN (01:00)
[2023-01-23] MEDS ORDERED: FAMOTIDINE 20 MG (PEPCID) TABLET PO PRN (01:00)
[2023-01-23] MEDS ORDERED: NITROGLYCERIN 0.4 MG SL TABS BTL 25'S SL PRN (01:00)
--- NOTE | 2023-01-23 01:10 | Tele-ICU Progress Note ---
Progress Note 62M with HTN, tobacco abuse - quit 5 days ago admitted with NSTEMI. Has had 1 month intermittent CP in the upper chest, without radiation. A/w SOB. Worsened with exertion - walking up stairs or over longer flat distances. Took ASA prior to coming to ED. Initial troponin was elevated to 3.0 with repeat 3.19. EKG was reportedly nonischemic, although incomplete RBBB noted (no prior for comparison). He was given SL nitro, therapuetic lovenox prior to admission to ICU. Labs otherwise unremarkable. A/P - ACS/NSTEMI: took ASAx4 prior to presentation, given therapuetic lovenox in ED. Trend troponin. Cardiology managing. - hyperglycemia: marginal elevation at 121 but not fasting. Will check fasting in AM along with A1C for risk stratification in the setting of ACS. Patient assessed via real time audiovisual communication system. CCT 6 min Focused Exam Height, Weight, BMI Height: '" Weight: lbs. oz. kg; 26.57 BMI Method: COLT EVERETT MD January 23, 2023 01:10
[2023-01-23 01:13] VITALS: BP 129/78
[2023-01-23] MEDS ORDERED: RT-ALBUTEROL/IPRATROPIUM 3 ML (DUONEB) VIAL INH PRN (01:30)
[2023-01-23] MEDS ORDERED: NS IV 1000 ML 1,000 ML IV PRN (04:00)
[2023-01-23 04:20] LABS: TRIGLYCERIDES 126 MG/DL (<150); VLDL CHOLESTEROL 25 MG/DL (5-40)
[2023-01-23 04:25] LABS: CHOLESTEROL 170 MG/DL (< 200)
[2023-01-23 04:26] LABS: HDL CHOLESTEROL 36 MG/DL (40-60)
--- NOTE | 2023-01-23 05:16 | History & Physical ---
History of Present Illness HPI/Chief Complaint CC: Unstable angina with NSTEMI HPI: This is a 62yoHM clinic patient of [facility] who presented to the ER with CP. Elevated troponin noted so protocol meds started per Dr Little. Smoking hx for 50 years. Has HLP. Cardiac cath revealed multi-vessel disease and needs CABG. Source: patient Exam Limitations: no limitations Date Seen 01/23/23 Time Seen by a Provider: 11:00 Attending Physician Leyda David Aprn PCP Admitting Physician: Kaya Avelar DO Attending Physician: Kaya Avelar DO Referring Physician Date of Admission January 23, 2023 at 00:34 Home Medications & Allergies Home Medications Reviewed patient Home Medication Reconciliation performed by pharmacy medication reconciliations science technicians and/or nursing. Patients Allergies have been reviewed. Allergies Allergies Coded Allergies No Known Drug Allergies (Owbeksqvww13/10/20) Past Mirmerj-Hoeoez-Utjgho Hx Past Med/Social Hx: Reviewed Nursing Past Med/Soc Hx, Reviewed and Corrections made Patient Social History Marrital Status: single Employed/Student: employed Alcohol Use: Regular Use Smoking Status: Current Everyday Smoker Type Used: Cigarettes 2nd Hand Smoke Exposure: No Recent Foreign Travel: No Contact w/other who traveled: No Recent Hopitalizations: No Seasonal Allergies Seasonal Allergies: No Past Medical History Surgeries: Abdominal, Appendectomy, Tonsillectomy Cardiac: High Cholesterol, Hypertension History of Blood Disorders: No Adverse Reaction to Blood Abernathy: No Review of Systems Constitutional: see HPI Respiratory: dyspnea on exertion Cardiovascular: chest pain Physical Exam Physical Exam Vital Signs Vital Signs - First Documented 01/22/23 19:51 Temp 37.0 Pulse 85 Resp 20 B/P (MAP) 142/92 (109) Pulse Ox 98 O2 Delivery Room Air Capillary Refill : Less Than 3 Seconds Height, Weight, BMI Height: '" Weight: lbs. oz. kg; 26.57 BMI Method: General Appearance: No Apparent Distress, WD/WN, Anxious, Chronically ill HEENT: PERRL/EOMI Neck: Full Range of Motion Respiratory: Chest Non Tender, Lungs Clear, Normal Breath Sounds, No Accessory Muscle Use, No Respiratory Distress Cardiovascular: Regular Rate, Rhythm, No Edema Gastrointestinal: Normal Bowel Sounds, Non Tender, Soft Extremity: Normal Range of Motion Neurologic/Psychiatric: Alert, Oriented x3, No Motor/Sensory Deficits, Normal Mood/Affect Skin: Normal Color Results Results/Procedures Labs Laboratory Tests 01/22/23 19:54 01/23/23 03:59 Patient resulted labs reviewed. Assessment/Plan Admission Diagnosis Assessment: Unstable angina NSTEMI Severe multi-vessel disease on cath needs CABG HTN HLP Smoker Plan: CABG Admission Status: Inpatient Order (span 2 midnights) Reason for Inpatient Admission: Angina Clinical Quality Measures AMI/AHF: ASA po Prior to arrival: KAYA Meza DO January 23, 2023 05:16
[2023-01-23 05:34] LABS: BASOPHILS # (AUTO) 0.1 10^3/uL (0.0-0.1); BASOPHILS % (AUTO) 1 % (0-10); EOSINOPHILS # (AUTO) 0.2 10^3/uL (0.0-0.3); EOSINOPHILS % (AUTO) 2 % (0-10); HEMATOCRIT 39 % (40-54); HEMOGLOBIN 13.2 g/dL (13.3-17.7); LYMPHOCYTES # (AUTO) 1.5 10^3/uL (1.0-4.0); LYMPHOCYTES % (AUTO) 20 % (12-44); MEAN CORPUSCULAR HEMOGLOBIN 29 pg (25-34); MEAN CORPUSCULAR HGB CONC 34 g/dL (32-36); MEAN CORPUSCULAR VOLUME 86 fL (80-99); MEAN PLATELET VOLUME 10.2 fL (9.0-12.2); MONOCYTES # (AUTO) 0.9 10^3/uL (0.0-1.0); MONOCYTES % (AUTO) 12 % (0-12); NEUTROPHILS # (AUTO) 4.8 10^3/uL (1.8-7.8); NEUTROPHILS % (AUTO) 65 % (42-75); PLATELET COUNT 226 10^3/uL (130-400); WHITE BLOOD COUNT 7.4 10^3/uL (4.3-11.0)
[2023-01-23 05:48] LABS: POTASSIUM 3.8 MMOL/L (3.6-5.0)
[2023-01-23 05:50] LABS: CALCIUM 9.2 MG/DL (8.5-10.1)
[2023-01-23 05:54] LABS: CREATININE SERUM 0.74 MG/DL (0.60-1.30); PHOSPHORUS 3.3 MG/DL (2.3-4.7)
[2023-01-23 05:56] LABS: MAGNESIUM 1.9 MG/DL (1.6-2.4)
[2023-01-23] MEDS ORDERED: CATHETER FLUSH 10 ML SYR IVP SCH (06:00)
[2023-01-23] MEDS ORDERED: POTASSIUM CL 10MEQ/50ML IVPB 100 ML IV ONE (06:23)
[2023-01-23] MEDS ORDERED: MAGNESIUM 1 GM/100 ML IVPB 200 ML IV ONE (06:23)
[2023-01-23] MEDS: POTASSIUM CL 10MEQ/50ML IVPB 50 ML IV SCH ×2 (06:25→08:36)
[2023-01-23] MEDS: MAGNESIUM 1 GM/100 ML IVPB 100 ML IV SCH ×2 (06:25→07:25)
[2023-01-23] MEDS ORDERED: NS IV 500 ML 500 ML IV PRN (06:30)
[2023-01-23] MEDS ORDERED: NS IV 1000 ML 1,000 ML ONE (07:23)
[2023-01-23] MEDS ORDERED: LIDOCAINE 1% INJ 20 ML VIAL ONE (07:23)
[2023-01-23] MEDS ORDERED: HEParin (CATH LAB) 2,000 ML IV ONE (07:23)
[2023-01-23] MEDS ORDERED: MIDAZOLAM 5 MG/5 ML (VERSED) VIAL ONE (07:24)
[2023-01-23] MEDS ORDERED: fentaNYL INJ 100 MCG/2 ML AMP ONE (07:24)
[2023-01-23] MEDS ORDERED: HEParin 1000 UNIT/ML (10ML VIAL) FOR BOLUS ONE (07:25)
[2023-01-23] MEDS ORDERED: VERAPAMIL 5 MG/2 ML (CALAN) VIAL IV ONE (07:44)
[2023-01-23] MEDS ORDERED: NITRO DRIP 25000 MCG/D5W 250 ML IV ONE (07:45)
--- NOTE | 2023-01-23 07:48 | Consultation-Cardiology ---
HPI-Cardiology Cardiology Consultation Date of Consultation 01/23/23 Date of Admission Time Seen by Provider: 07:45 Indication: Chest pain HPI 62-year-old gentleman with history of hypertension, tobaccoism, no known previous cardiac history, started to have chest pain dull in nature on the left side radiating to the left arm for the past 6 months. Initially was short-lived and improving then it became more persistent. Patient reported persistent chest discomfort for the past 4 weeks getting worse with exertion. Went to the emergency room last night and noted to have elevation in troponin initially reported resolution of his chest pain after laying down in bed but now reporting mild persistent chest discomfort. Admits having some dyspnea on exertion, dry cough. No palpitation. No syncope or near syncopal episodes Home Medications & Allergies Allergies: Coded Allergies: No Known Drug Allergies (Unverified , 06/18/20) Home Medication List Reviewed: Yes QPY-Zdrzet-Znwmsh Hx Patient Social History Marital Status: Employed/Student: employed Smoking Status: Current Everyday Smoker Type Used: Cigarettes 2nd Hand Smoke Exposure: No Recent Hopitalizations: No Have you traveled recently?: No Alcohol Use?: Yes Past Medical History Hypertension Family Medical History Significant Family History: No Pertinent Family Hx Review of Systems-General Review of Systems Constitutional: no symptoms reported, see HPI EENTM: see HPI, no symptoms reported Respiratory: see HPI; No cough; dyspnea on exertion; No hemoptysis, No orthopnea, No phlegm, No short of breath, No stridor, No wheezing, No other Cardiovascular: see HPI, chest pain; No edema, No Hx of Intervention, No palpitations, No syncope, No vascular heart diseas, No other Gastrointestinal: no symptoms reported, see HPI Genitourinary: no symptoms reported, see HPI Musculoskeletal: no symptoms reported Skin: no symptoms reported Psychiatric/Neurological: No Symptoms Reported Reviewed Test Results Reviewed Test Results Lab Laboratory Tests Test 01/22/23 19:54 01/22/23 20:50 01/22/23 21:32 01/23/23 01:35 Range/Units White Blood Count 8.5 4.3-11.0 10^3/uL Red Blood Count 4.84 4.30-5.52 10^6/uL Hemoglobin 13.9 13.3-17.7 g/dL Hematocrit 41 40-54 % Mean Corpuscular Volume 85 80-99 fL Mean Corpuscular Hemoglobin 29 25-34 pg Mean Corpuscular Hemoglobin Concent 34 32-36 g/dL Red Cell Distribution Width 13.6 10.0-14.5 % Platelet Count 228 130-400 10^3/uL Mean Platelet Volume 9.7 9.0-12.2 fL Immature Granulocyte % (Auto) 0 % Neutrophils (%) (Auto) 62 42-75 % Lymphocytes (%) (Auto) 22 12-44 % Monocytes (%) (Auto) 13 H 0-12 % Eosinophils (%) (Auto) 2 0-10 % Basophils (%) (Auto) 1 0-10 % Neutrophils # (Auto) 5.3 1.8-7.8 10^3/uL Lymphocytes # (Auto) 1.9 1.0-4.0 10^3/uL Monocytes # (Auto) 1.1 H 0.0-1.0 10^3/uL Eosinophils # (Auto) 0.2 0.0-0.3 10^3/uL Basophils # (Auto) 0.1 0.0-0.1 10^3/uL Immature Granulocyte # (Auto) 0.0 0.0-0.1 10^3/uL Prothrombin Time 12.6 12.2-14.7 SEC INR Comment 0.9 0.8-1.4 Activated Partial Thromboplast Time 35 24-35 SEC D-Dimer 0.34 0.00-0.49 UG/ML Sodium Level 141 135-145 MMOL/L Potassium Level 4.0 3.6-5.0 MMOL/L Chloride Level 105 98-107 MMOL/L Carbon Dioxide Level 24 21-32 MMOL/L Anion Gap 12 5-14 MMOL/L Blood Urea Nitrogen 21 H 7-18 MG/DL Creatinine 0.86 0.60-1.30 MG/DL Estimat Glomerular Filtration Rate 97 BUN/Creatinine Ratio 24 Glucose Level 121 H 70-105 MG/DL Calcium Level 9.7 8.5-10.1 MG/DL Corrected Calcium 9.5 8.5-10.1 MG/DL Magnesium Level 2.2 1.6-2.4 MG/DL Total Bilirubin 0.3 0.1-1.0 MG/DL Aspartate Amino Transf (AST/SGOT) 42 H 5-34 U/L Alanine Aminotransferase (ALT/SGPT) 21 0-55 U/L Alkaline Phosphatase 85 40-136 U/L Troponin I 3.00 *H 3.19 *H 6.244 *H <0.028 NG/ML Pro-B-Type Natriuretic Peptide 975.1 H <125.0 PG/ML Total Protein 7.4 6.4-8.2 GM/DL Albumin 4.3 3.2-4.5 GM/DL Urine Color YELLOW Urine Clarity CLEAR Urine pH 6.5 5-9 Urine Specific [place] 1.020 1.016-1.022 Urine Protein NEGATIVE NEGATIVE Urine Glucose (UA) NEGATIVE NEGATIVE Urine Ketones NEGATIVE NEGATIVE Urine Nitrite NEGATIVE NEGATIVE Urine Bilirubin NEGATIVE NEGATIVE Urine Urobilinogen 0.2 < = 1.0 MG/DL Urine Leukocyte Esterase NEGATIVE NEGATIVE Urine RBC (Auto) TRACE-I H NEGATIVE Urine RBC 2-5 H /HPF Urine WBC RARE /HPF Urine Squamous Epithelial Cells NONE /HPF Urine Crystals PRESENT H /LPF Urine Amorphous Sediment FEW DINAA URATES H /LPF Urine Bacteria NEGATIVE /HPF Urine Casts NONE /LPF Urine Mucus SMALL H /LPF Urine Culture Indicated NO Urine Opiates Screen NEGATIVE NEGATIVE Urine Oxycodone Screen NEGATIVE NEGATIVE Urine Methadone Screen NEGATIVE NEGATIVE Urine Propoxyphene Screen NEGATIVE NEGATIVE Urine Barbiturates Screen NEGATIVE NEGATIVE Ur Tricyclic Antidepressants Screen NEGATIVE NEGATIVE Urine Phencyclidine Screen NEGATIVE NEGATIVE Urine Amphetamines Screen NEGATIVE NEGATIVE Urine Methamphetamines Screen NEGATIVE NEGATIVE Urine Benzodiazepines Screen NEGATIVE NEGATIVE Urine Cocaine Screen NEGATIVE NEGATIVE Urine Cannabinoids Screen POSITIVE H NEGATIVE Test 01/23/23 03:59 Range/Units White Blood Count 7.4 4.3-11.0 10^3/uL Red Blood Count 4.55 4.30-5.52 10^6/uL Hemoglobin 13.2 L 13.3-17.7 g/dL Hematocrit 39 L 40-54 % Mean Corpuscular Volume 86 80-99 fL Mean Corpuscular Hemoglobin 29 25-34 pg Mean Corpuscular Hemoglobin Concent 34 32-36 g/dL Red Cell Distribution Width 13.8 10.0-14.5 % Platelet Count 226 130-400 10^3/uL Mean Platelet Volume 10.2 9.0-12.2 fL Immature Granulocyte % (Auto) 0 % Neutrophils (%) (Auto) 65 42-75 % Lymphocytes (%) (Auto) 20 12-44 % Monocytes (%) (Auto) 12 0-12 % Eosinophils (%) (Auto) 2 0-10 % Basophils (%) (Auto) 1 0-10 % Neutrophils # (Auto) 4.8 1.8-7.8 10^3/uL Lymphocytes # (Auto) 1.5 1.0-4.0 10^3/uL Monocytes # (Auto) 0.9 0.0-1.0 10^3/uL Eosinophils # (Auto) 0.2 0.0-0.3 10^3/uL Basophils # (Auto) 0.1 0.0-0.1 10^3/uL Immature Granulocyte # (Auto) 0.0 0.0-0.1 10^3/uL Sodium Level 139 135-145 MMOL/L Potassium Level 3.8 3.6-5.0 MMOL/L Chloride Level 108 H 98-107 MMOL/L Carbon Dioxide Level 18 L 21-32 MMOL/L Anion Gap 13 5-14 MMOL/L Blood Urea Nitrogen 16 7-18 MG/DL Creatinine 0.74 0.60-1.30 MG/DL Estimat Glomerular Filtration Rate 102 BUN/Creatinine Ratio 22 Glucose Level 93 70-105 MG/DL Calcium Level 9.2 8.5-10.1 MG/DL Phosphorus Level 3.3 2.3-4.7 MG/DL Magnesium Level 1.9 1.6-2.4 MG/DL Troponin I 6.157 *H <0.028 NG/ML Triglycerides Level 126 <150 MG/DL Cholesterol Level 170 < 200 MG/DL LDL Cholesterol Direct 112 1-129 MG/DL VLDL Cholesterol 25 5-40 MG/DL HDL Cholesterol 36 L 40-60 MG/DL Physical Exam Physical Exam Vital Signs Vital Signs - First Documented 01/22/23 19:51 Temp 37.0 Pulse 85 Resp 20 B/P (MAP) 142/92 (109) Pulse Ox 98 O2 Delivery Room Air Capillary Refill : Less Than 3 Seconds Height, Weight, BMI Height: '" Weight: lbs. oz. kg; 26.57 BMI Method: General Appearance: No Apparent Distress, WD/WN, Anxious HEENT: PERRL/EOMI Neck: Full Range of Motion Respiratory: Chest Non Tender, Lungs Clear, Normal Breath Sounds, No Accessory Muscle Use, No Respiratory Distress Cardiovascular: Regular Rate, Rhythm, No Edema Gastrointestinal: Normal Bowel Sounds, Non Tender, Soft Extremity: Normal Range of Motion Neurologic/Psychiatric: Alert, Oriented x3, No Motor/Sensory Deficits, Normal Mood/Affect Skin: Normal Color A/P-Cardiology Admission Diagnosis Unstable angina Non-ST elevation myocardial infarction Coronary artery disease Hypertension Hyperlipidemia Assessment/Plan Chest pain, unstable angina Becoming more persistent active chest pain No acute EKG changes Elevated troponin level, planning for cardiac catheterization possible PTCA Coronary artery disease, non-ST elevation myocardial infarction with persistent elevation in troponin Planning to proceed with cardiac catheterization Hypertension, maintained on lisinopril Hyperlipidemia, I will start statin Tobaccoism, educated on smoking cessation Clinical Quality Measures AMI/AHF: ASA po Prior to arrival: CHAPARRITA Veliz MD January 23, 2023 07:48
--- NOTE | 2023-01-23 07:49 | Cardiac Procedure Note-CS/ASA ---
Pre-Procedure Note Pre-Op Procedure Note Date of Available H&P: January 23, 2023 Date H&P Reviewed: January 23, 2023 Time H&P Reviewed: 07:48 History & Physical: H&P Reviewed, Patient Examed, No changes noted Pre-Operative Diagnosis: NSTMI Moderate Sedation PreProcedure Time 07:48 ASA Score 3 Airway Lungs Heart ASA score ASA 1: a normal healthy patient ASA 2: a patient with a mild systemic disease (mid diabetes, controlled hypertension, obesity ASA 3: a patient with a severe systemic disease that limits activity (angina, COPD, prior Myocardial infarction) ASA 4: a patient with an incapacitating disease that is a constant threat to life (CHF, renal failure) ASA 5: a moribund patient not expected to survive 24 hrs. (ruptured aneurysm) ASA 6: a declared brain- patient whose organs are being harvested. For emergent operations, add the letter E after the classification Mallampati Classification Grade 3 Sedation Plan Analgesia, Amnesia, Plan communicated to team members, Discussed options with patient/fam, Discussed risks with patient/fam The patient is an appropriate candidate to undergo the planned procedure, sedation, and anesthesia. The patient immediately re-assessed prior to indication. CHAPARRITA QUACH MD January 23, 2023 07:49
--- NOTE | 2023-01-23 08:28 | Discharge Inst-Post CATH ---
Discharge Inst-CATH/EP Problems Reviewed?: Yes Post Cardiac Cath/EP D/C Inst Follow Up/Plan Transfer to [facility] <b>CARDIAC CATH/EP PROCEDURE DISCHARGE INSTRUCTIONS</b> ACTIVITY * Go Home directly and rest. * Limit activity of the leg (or wrist if it was used) for 7 days including aerobics, swimming, jogging, bicycling, etc. * Restrict stair-climbing for 7 days if possible, if not, climb up with your non-cath leg, then bring together on the same step. * Avoid lifting, pushing, pulling or excessive movement of the affected extremity for 7 days. * Customary sexual activity may be resumed after 2 days-use caution not to use a position that strains or causes pain to the affected extremity. * No driving for 24 hours. * NO SMOKING. * Avoid straining for bowel movements for 7 days. * Gentle walking on level ground is allowed. * Returning to work will depend on the type of procedure and the results. Your doctor will discuss this with you. CALL YOUR DOCTOR FOR ANY OF THE FOLLOWING: *If bleeding from the puncture site occurs- Apply gentle pressure to site with clean cloth and call your doctor or EMS. * If a knot or lump forms under the skin, increases in size, or causes pain. * If bruising appears to be worsening or moving further down your leg instead of disappearing. * Temperature above 101 F. CARE OF YOUR GROIN INCISION; * Bruising or purple discoloration of the skin near the puncture site is common. * You may shower only, no bathtub bathing for 5 days. Be careful to avoid slipping as your leg may feel stiff. * If a closure device was used on your femoral artery, please see the attached guide regarding care of the device and your leg. * Leave dressing on FOR 24 hours. CARE OF YOUR WRIST INCISION; * Bruising or purple discoloration of the skin near the puncture site is common. * You may shower. * DO NOT submerge wrist. * Leave dressing on FOR 24 hours. CHAPARRITA QUACH MD January 23, 2023 08:28
[2023-01-23] MEDS ORDERED: NS IV 1000 ML 1,000 ML IV SCH (08:30)
--- NOTE | 2023-01-23 08:34 | Cardiac Cath Report ---
Cardiac Cath Report Physician (s)/Security Consultant (s) Physician CHAPARRITA QUACH MD Pre-Procedure Diagnosis Pre-Procedure Diagnosis: NSTMI Post-Procedure Note Procedure Start Date: January 23, 2023 Name of Procedure: Left heart catheterization Left ventriculogram Aortic arch angiogram Findings/Procedure Note PROCEDURE NOTE: 62-year-old gentleman admitted with non-ST elevation myocardial infarction, has been having waxing and waning pain for 6 months became worse in the past 4 days. Came into the emergency room and emergency cardiac catheterization was advised. After explaining the procedure to the patient, all pros and cons were explained, all questions were answered. The patient signed the consent and then he was placed in the cardiac catheterization laboratory. Groin was prepped in SL fashion local anesthesia was used. Sheath placed in the right radial artery, Wayne catheter was advanced to the left ventricular cavity, pressure was measured, left ventriculogram was done, pullback LV to aorta, engage the right and left coronary system, angiogram was done. At the end of the procedure the sheath was removed. Vascular band was used FINDINGS: Hemodynamics LV 126/13, end-diastolic pressure of 13 Aorta 129/91 mean of 106 ANATOMY: Left Main is free of obstructive disease Left Anterior Descending has severe stenosis in the proximal and mid artery Left Circumflex is totally occluded proximally, reconstructed by collaterals, moderate size artery Right Coronary Artery is dominant artery with multiple segment of severe stenosis in the mid and distal right coronary artery LV Gram was done showing normal left ventricular size, hypokinesia at the inferior wall, ejection fraction 50% Aorta evaluation with aortic arch angiogram showed slightly prominent aortic arch, no dissection or aneurysm, normal origin of the brachiocephalic artery, left carotid and left subclavian arteries CONCLUSION: Severe multivessel coronary artery disease including severe proximal and mid LAD, total occlusion of the proximal circumflex artery reconstructed by collaterals, severe stenosis at the mid and distal right coronary artery, dominant right coronary system Normal left ventricular size with mild hypokinesia of the inferior wall, ejection fraction 50% Normal aortic arch DISCUSSION AND RECOMMENDATION Hospital course: Patient has severe multivessel coronary artery disease, non-ST elevation myocardial infarction, he is currently stable, bypass surgery was advised. I will arrange for transfer to a tertiary care center for evaluation for bypass surgery. Patient was started on Lovenox and aspirin, I will add Lipitor 80 mg daily, beta-blockers and BALDEMAR inhibitor Final diagnosis: Non-ST elevation myocardial infarction Coronary artery disease Hypertension Hyperlipidemia Anesthesia Type: Conscious Sedation Estimated blood loss (mL): 10 ml Contrast Amount: 65 ml Post-Procedure Diagnosis Post-operative diagnosis: Final diagnosis: Non-ST elevation myocardial infarction Coronary artery disease Hypertension Hyperlipidemia CHAPARRITA QUACH MD January 23, 2023 08:34
[2023-01-23] MEDS ORDERED: ENOXAPARIN 100 MG/1 ML (LOVENOX) SYR SC SCH (09:00)
[2023-01-23] MEDS ORDERED: meTOprolol TARTRATE 25 MG (LOPRESSOR) TABLET PO SCH (09:00)
[2023-01-23] MEDS ORDERED: lisINopril 10 MG (PRINIVIL) TABLET PO SCH (09:00)
[2023-01-23] MEDS ORDERED: PANTOPRAZOLE 40 MG (PROTONIX) TAB PO SCH (09:00)
--- NOTE | 2023-01-23 11:19 | Discharge Summary ---
Diagnosis/Chief Complaint Date of Admission January 23, 2023 at 00:34 Date of Discharge Discharge Date: January 23, 2023 Discharge Diagnosis NSTEMI Multi-vessel disease in need of CABG Discharge Summary Discharge Physical Examination Allergies: Coded Allergies: No Known Drug Allergies (Unverified , 06/18/20) Vitals & I&Os Vital Signs Date Time Temp Pulse Resp B/P (MAP) Pulse Ox O2 Delivery O2 Flow Rate FiO2 01/23/23 14:00 74 9 116/80 (92) 92 Room Air 01/23/23 12:00 37.3 Hospital Course Was the Problem List Reviewed?: Yes see HPI and plan on H&P Labs (last 24 hrs) Laboratory Tests 01/22/23 19:54: White Blood Count 8.5, Red Blood Count 4.84, Hemoglobin 13.9, Hematocrit 41, Mean Corpuscular Volume 85, Mean Corpuscular Hemoglobin 29, Mean Corpuscular Hemoglobin Concent 34, Red Cell Distribution Width 13.6, Platelet Count 228, Mean Platelet Volume 9.7, Immature Granulocyte % (Auto) 0, Neutrophils (%) (Auto) 62, Lymphocytes (%) (Auto) 22, Monocytes (%) (Auto) 13H, Eosinophils (%) (Auto) 2, Basophils (%) (Auto) 1, Neutrophils # (Auto) 5.3, Lymphocytes # (Auto) 1.9, Monocytes # (Auto) 1.1H, Eosinophils # (Auto) 0.2, Basophils # (Auto) 0.1, Immature Granulocyte # (Auto) 0.0, Prothrombin Time 12.6, INR Comment 0.9, Activated Partial Thromboplast Time 35, D-Dimer 0.34, Sodium Level 141, Potassium Level 4.0, Chloride Level 105, Carbon Dioxide Level 24, Anion Gap 12, Blood Urea Nitrogen 21H, Creatinine 0.86, Estimat Glomerular Filtration Rate 97, BUN/Creatinine Ratio 24, Glucose Level 121H, Calcium Level 9.7, Corrected Calcium 9.5, Magnesium Level 2.2, Total Bilirubin 0.3, Aspartate Amino Transf (AST/SGOT) 42H, Alanine Aminotransferase (ALT/SGPT) 21, Alkaline Phosphatase 85, Troponin I 3.00*H, Pro-B-Type Natriuretic Peptide 975.1H, Total Protein 7.4, Albumin 4.3 01/22/23 20:50: Troponin I 3.19*H 5/16/23 21:32: Urine Color YELLOW, Urine Clarity CLEAR, Urine pH 6.5, Urine Specific [place] 1.020, Urine Protein NEGATIVE, Urine Glucose (UA) NEGATIVE, Urine Ketones NEGATIVE, Urine Nitrite NEGATIVE, Urine Bilirubin NEGATIVE, Urine Urobilinogen 0.2, Urine Leukocyte Esterase NEGATIVE, Urine RBC (Auto) TRACE-IH, Urine RBC 2- 5H, Urine WBC RARE, Urine Squamous Epithelial Cells NONE, Urine Crystals PRESE NTH, Urine Amorphous Sediment FEW DIANA URATESH, Urine Bacteria NEGATIVE, Urine Casts NONE, Urine Mucus SMALLH, Urine Culture Indicated NO, Urine Opiates Screen NEGATIVE, Urine Oxycodone Screen NEGATIVE, Urine Methadone Screen NEGATIVE, Urine Propoxyphene Screen NEGATIVE, Urine Barbiturates Screen NEGATIVE, Ur Tricyclic Antidepressants Screen NEGATIVE, Urine Phencyclidine Screen NEGATIVE, Urine Amphetamines Screen NEGATIVE, Urine Methamphetamines Screen NEGATIVE, Urine Benzodiazepines Screen NEGATIVE, Urine Cocaine Screen NEGATIVE, Urine Cannabinoids Screen POSITIVEH 01/23/23 01:35: Troponin I 6.244*H 01/23/23 03:59: White Blood Count 7.4, Red Blood Count 4.55, Hemoglobin 13.2L, Hematocrit 39L, Mean Corpuscular Volume 86, Mean Corpuscular Hemoglobin 29, Mean Corpuscular He moglobin Concent 34, Red Cell Distribution Width 13.8, Platelet Count 226, Mean Platelet Volume 10.2, Immature Granulocyte % (Auto) 0, Neutrophils (%) (Auto) 65, Lymphocytes (%) (Auto) 20, Monocytes (%) (Auto) 12, Eosinophils (%) (Auto) 2, Basophils (%) (Auto) 1, Neutrophils # (Auto) 4.8, Lymphocytes # (Auto) 1.5, Monocytes # (Auto) 0.9, Eosinophils # (Auto) 0.2, Basophils # (Auto) 0.1, Immature Granulocyte # (Auto) 0.0, Sodium Level 139, Potassium Level 3.8, Chloride Level 108H, Carbon Dioxide Level 18L, Anion Gap 13, Blood Urea Nitrogen 16, Creatinine 0.74, Estimat Glomerular Filtration Rate 102, BUN/Creatinine Ratio 22, Glucose Level 93, Calcium Level 9.2, Phosphorus Level 3.3, Magnesium Level 1.9, Troponin I 6.157*H, Triglycerides Level 126, Cholesterol Level 170, LDL Cholesterol Direct 112, VLDL Cholesterol 25, HDL Cholesterol 36L 01/23/23 08:10: Troponin I 7.036*H 01/23/23 11:58: Troponin I 8.845*H Pending Labs Laboratory Tests 01/22/23 19:54: White Blood Count 8.5, Red Blood Count 4.84, Hemoglobin 13.9, Hematocrit 41, Mean Corpuscular Volume 85, Mean Corpuscular Hemoglobin 29, Mean Corpuscular Hemoglobin Concent 34, Red Cell Distribution Width 13.6, Platelet Count 228, Mean Platelet Volume 9.7, Immature Granulocyte % (Auto) 0, Neutrophils (%) (Auto) 62, Lymphocytes (%) (Auto) 22, Monocytes (%) (Auto) 13, Eosinophils (%) (Auto) 2, Basophils (%) (Auto) 1, Neutrophils # (Auto) 5.3, Lymphocytes # (Auto) 1.9, Monocytes # (Auto) 1.1, Eosinophils # (Auto) 0.2, Basophils # (Auto) 0.1, Immature Granulocyte # (Auto) 0.0, Prothrombin Time 12.6, INR Comment 0.9, Activated Partial Thromboplast Time 35, D-Dimer 0.34, Sodium Level 141, Potassium Level 4.0, Chloride Level 105, Carbon Dioxide Level 24, Anion Gap 12, Blood Urea Nitrogen 21, Creatinine 0.86, Estimat Glomerular Filtration Rate 97, BUN/Creatinine Ratio 24, Glucose Level 121, Calcium Level 9.7, Corrected Calcium 9.5, Magnesium Level 2.2, Total Bilirubin 0.3, Aspartate Amino Transf (AST/SGOT) 42, Alanine Aminotransferase (ALT/SGPT) 21, Alkaline Phosphatase 85, Troponin I 3.00, Pro-B-Type Natriuretic Peptide 975.1, Total Protein 7.4, Albumin 4.3 01/22/23 20:50: Troponin I 3.19 01/22/23 21:32: Urine Color YELLOW, Urine Clarity CLEAR, Urine pH 6.5, Urine Specific [place] 1.020, Urine Protein NEGATIVE, Urine Glucose (UA) NEGATIVE, Urine Ketones NEGATIVE, Urine Nitrite NEGATIVE, Urine Bilirubin NEGATIVE, Urine Urobilinogen 0.2, Urine Leukocyte Esterase NEGATIVE, Urine RBC (Auto) TRACE-I, Urine RBC 2-5, Urine WBC RARE, Urine Squamous Epithelial Cells NONE, Urine Crystals PRESENT, Urine Amorphous Sediment FEW DIANA URATES, Urine Bacteria NEGATIVE, Urine Casts NONE, Urine Mucus SMALL, Urine Culture Indicated NO, Urine Opiates Screen NEGATIVE, Urine Oxycodone Screen NEGATIVE, Urine Methadone Screen NEGATIVE, Urine Propoxyphene Screen NEGATIVE, Urine Barbiturates Screen NEGATIVE, Ur Tricyclic Antidepressants Screen NEGATIVE, Urine Phencyclidine Screen NEGATIVE, Urine Amphetamines Screen NEGATIVE, Urine Methamphetamines Screen NEGATIVE, Uri ne Benzodiazepines Screen NEGATIVE, Urine Cocaine Screen NEGATIVE, Urine Cannabinoids Screen POSITIVE 01/23/23 01:35: Troponin I 6.244 01/23/23 03:59: White Blood Count 7.4, Red Blood Count 4.55, Hemoglobin 13.2, Hematocrit 39, Mean Corpuscular Volume 86, Mean Corpuscular Hemoglobin 29, Mean Corpuscular Hemoglobin Concent 34, Red Cell Distribution Width 13.8, Platelet Count 226, Mean Platelet Volume 10.2, Immature Granulocyte % (Auto) 0, Neutrophils (%) (Auto) 65, Lymphocytes (%) (Auto) 20, Monocytes (%) (Auto) 12, Eosinophils (%) (Auto) 2, Basophils (%) (Auto) 1, Neutrophils # (Auto) 4.8, Lymphocytes # (Auto) 1.5, Monocytes # (Auto) 0.9, Eosinophils # (Auto) 0.2, Basophils # (Auto) 0.1, Immature Granulocyte # (Auto) 0.0, Sodium Level 139, Potassium Level 3.8, Chloride Level 108, Carbon Dioxide Level 18, Anion Gap 13, Blood Urea Nitrogen 16, Creatinine 0.74, Estimat Glomerular Filtration Rate 102, BUN/Creatinine Ratio 22, Glucose Level 93, Mean Blood Glucose [Pending], Hemoglobin A1c [Pending], Calcium Level 9.2, Phosphorus Level 3.3, Magnesium Level 1.9, Troponin I 6.157, Triglycerides Level 126, Cholesterol Level 170, LDL Cholesterol Direct 112, VLDL Cholesterol 25, HDL Cholesterol 36 01/23/23 08:10: Troponin I 7.036 01/23/23 11:58: Troponin I 8.845 Discharge Home Medications: Active Scripts Active Lisinopril 40 Mg Tablet 40 Mg PO DAILY 30 Days Instructions to patient/family Please see electronic discharge instructions given to patient. Clinical Quality Measures AMI/AHF: ASA po Prior to arrival: JEANMARIE Meza DO January 23, 2023 11:19
[2023-01-24] MEDS ORDERED: MAGNESIUM 1 GM/100 ML IVPB 100 ML IV SCH (06:00)
[2023-01-24] MEDS ORDERED: POTASSIUM CL 10MEQ/50ML IVPB 50 ML IV SCH (06:00)
[2023-01-24] MEDS ORDERED: KCL 20 MEQ TAB (K-DUR) PO SCH (06:00)
== END 2023-01-23 16:25 | disposition short-term general hospital (02) | DRG 282 ==
LOC: EDUNIT# 19:47 → ER FS 19:49 → OBSVTOIN 01-23 00:34 → ICU 01-23 00:34
PROVIDERS: ADMIT Internal Medicine; ATTEND Internal Medicine
PROC: 4A023N7 Measurement of Cardiac Sampling and Pressure, Left Heart, Percutaneous Approach (ICD-10-PCS; principal; 2023-01-23)
PROC: B2111ZZ Fluoroscopy of Multiple Coronary Arteries using Low Osmolar Contrast (ICD-10-PCS; 2023-01-23)
PROC: B2151ZZ Fluoroscopy of Left Heart using Low Osmolar Contrast (ICD-10-PCS; 2023-01-23)
PROC: B3101ZZ Fluoroscopy of Thoracic Aorta using Low Osmolar Contrast (ICD-10-PCS; 2023-01-23)
DX: I21.4 Non-ST elevation (NSTEMI) myocardial infarction (principal); I25.110 Atherosclerotic heart disease of native coronary artery with unstable angina pectoris; F12.10 Cannabis abuse, uncomplicated; R73.9 Hyperglycemia, unspecified; I10 Essential (primary) hypertension; I45.10 Unspecified right bundle-branch block; E78.00 Pure hypercholesterolemia, unspecified; F17.210 Nicotine dependence, cigarettes, uncomplicated
CPT/HCPCS: 36221; 36415; 71045; 80048; 80053; 80061; 80306; 81000; 83036; 83735; 83880; 84100; 84484; 85025; 85379; 85610; 85730; 87081; 93005; 93041; 93306; 93458